=== PATIENT | female | born 1990 | race Caucasian/White ===

== ENCOUNTER 2016-08-31 23:59 | Emergency (ER) | payer OTHER | END 2016-09-01 04:00 | disposition left against medical advice (07) | LOC: CED 23:59 | DX: Z53.21 Procedure and treatment not carried out due to patient leaving prior to being seen by health care provider (principal) ==

== ENCOUNTER 2016-09-03 16:01 | Inpatient (IN) | payer OTHER ==
--- NOTE | ~2016-09-03 | MR64 ---
[facility] A Service of [facility] & [facility] RADIOLOGY TEXT RESULTS PATIENT: RAY GRUBER LOCATION: C2A 242-01 : [birth year] UNIT #: [id number] AGE: [address]: Sebastian Wilks MD SEX: F ORDER DR: [id number] [facility] [address] [facility]. [place], [place] [address] [id number] I MR#: [id number] Acc #: [id number] NAME: RAY GRUBER : 1990 SEX: F STUDY DATE/TIME: 09/04/2016 12:41 UNIT: [facility] ROOM: 242 STUDY DESCRIPTION: MR Forearm WWo Contrast Lt Attending Physician: Sebastian Wilks M.D. Ordering Physician: Sebastian Wilks M.D. Primary Care Physician: Danielito Montague M.D. MRI CENTER REPORT This report is preliminary unless electronic signature is present. EXAM MRI of the left arm with and without contrast HISTORY 26-year-old female dog bite 3 days ago, pain and swelling, left forearm. TECHNIQUE Multiplanar multiecho imaging was performed of the left forearm utilizing a high-field magnet and dedicated protocol. 2 gel capsules were placed over the area of bite wounds. FINDINGS Examination demonstrates soft tissue swelling and edema over the mid- to distal forearm flexor surface with enhancement of the tissues postcontrast, compatible with cellulitis. No drainable fluid collection or abscess identified. Similar confluent edema is also seen over the extensor surface of the distal forearm at the wrist joint. This also enhances and is compatible with cellulitis. No abscess identified. Visualized flexor and extensor tendons unremarkable, though there is some edema along the most superficial muscles of the flexor forearm. There may be a trace amount of intra fascial edema. Visualized neurovascular structures unremarkable. The osseous structures unremarkable. No evidence of septic arthritis of the elbow or wrist joint. Best seen on the sagittal T1 post contrast, there does appear to be a small puncture wound on the extensor side of the distal forearm and similarly, a small puncture wound along the flexor side of the forearm. IMPRESSION MRI findings compatible with cellulitis involving both the flexor and extensor sides of the forearm. This extends over at least 18 cm length of the forearm, most prominent distally at the site of the patient's puncture wounds. No drainable fluid collection or abscess. There is a small STS. [facility] A Service of [facility] RADIOLOGY TEXT RESULTS PATIENT: RAY GRUBER LOCATION: [facility] 242-01 : [birth year] UNIT #: [id number] AGE: [address]: Sebastian Wilks MD SEX: F ORDER DR: amount of edema along the muscle belly of the distal aspect of the flexor carpi radialis and a small amount of intrafascial edema and enhancement which could represent some deeper infection or reactive changes but clearly, no deep fluid collection or abscess seen. Underlying osseous structures appear normal. Dictated by... Melinda Pantoja M.D. THIS IS AN ELECTRONICALLY VERIFIED REPORT Melinda Pantoja M.D. at 09/04/2016 5:23 PM HO/jose g TD: 09/04/2016 15:57 JOB #: [id number] MRI CENTER REPORT Page 1 of 1 COPY
--- NOTE | ~2016-09-03 | DS ---
Unit #: [id number] #: [id number] Patient: RAY GRUBER [id number] [address] [place], [place] [address] [id number] I MR#: [id number] NAME: RAY GRUBER ROOM: 242 Age: 26 Sex: F Admission Date: 09/03/2016 : 1990 Discharge Date: 09/06/2016 Attending Physician: Sebastian Wilks M.D. Primary Care Physician: Danielito Montague M.D. DISCHARGE SUMMARY PRINCIPAL DISCHARGE DIAGNOSIS Left forearm cellulitis secondary to dog bite. PROCEDURES None. CONSULTANTS Dr. Cano from [facility]. REASON FOR HOSPITALIZATION The patient is a 26-year-old white female who is otherwise healthy. She was bit by her own dog on 08/31/2016. She was seen in the [facility] and placed on Augmentin. It became worse and she was referred to the emergency room. There she was afebrile with normal CBC and BMP. Plain films of the left forearm were within normal limits. She had an open wound anterior and posterior left forearm with purulent discharge. Decreased range of motion in the wrist. Insignificant amounts of swelling and erythema. She was admitted for IV therapy. HOSPITAL COURSE The patient was admitted. Blood cultures were sent. Wound cultures were sent. She was placed on IV clindamycin and Levaquin. MRI was performed. Surgery was consulted. MRI was consistent with cellulitis, but no abscess formation. Wound Gram stain showed no organisms seen. Cultures were negative. Blood cultures negative. The patient rapidly improving and being discharged home on oral antibiotics for followup in the office. DIET She is on a regular diet as tolerated. ACTIVITY She is to be off of work until 09/09/2016. FOLLOWUP She is to follow up with Dr. Montague in one week. DISCHARGE MEDICATIONS 1. Bactroban ointment applied to wounds b.i.d. 2. Levaquin 500 mg daily for 7 days. 3. Cleocin 300 mg q.i.d. for 7 days. 4. Florastor 250 mg b.i.d. 5. Resume home medications. a. Claritin 10 mg p.o. daily p.r.n. b. Multivitamins 1 p.o. daily. Unit #: [id number] #: [id number] Patient: RAY GRUBER Dictated by... Talib Diaz/marya TD: 09/07/2016 12:18 JOB #: [id number] DISCHARGE SUMMARY Page 1 of 1 X Sebastian Wilks MD X DISCHARGE SUMMARY
--- NOTE | ~2016-09-03 | CR132 ---
[facility] A Service of [facility] & [facility] RADIOLOGY TEXT RESULTS PATIENT: RAY GRUBER LOCATION: [facility] 242-01 : [birth year] UNIT #: [id number] AGE: [address]: Sebastian Wilks MD SEX: F ORDER DR: [id number] [facility] [address]. [place], [place] [address] [id number] I MR#: [id number] Acc #: [id number] NAME: RAY GRUBER : 1990 SEX: F STUDY DATE/TIME: 09/03/2016 16:50 UNIT: [facility] ROOM: [facility] STUDY DESCRIPTION: CR Forearm 2 View Lt Attending Physician: Steven Winter M.D. Ordering Physician: Ed Shorty Ventura M.D. Primary Care Physician: Danielito Montague M.D. MEDICAL IMAGING REPORT This report is preliminary unless electronic signature is present EXAM Left forearm, 2 views, 09/03/2016. HISTORY Left upper extremity pain and swelling after dog bite 3 days ago. FINDINGS AP and lateral views of the forearm show no evidence of fracture or destructive bone lesion. No periosteal elevation is seen. No radiodense foreign bodies are noted. Adjacent soft tissue structures are normal. IMPRESSION Normal forearm. Dictated by... Jorge Murphy M.D. THIS IS AN ELECTRONICALLY VERIFIED REPORT Jorge Murphy M.D. at 09/04/2016 2:11 PM JUAN PABLO/herb TD: 09/03/2016 19:14 JOB #: [id number] MEDICAL IMAGING REPORT Page 1 of 1 COPY
--- NOTE | ~2016-09-03 | BMI ---
[facility] Nutrition Therapy DATE: 09/04/16 Patient: RAY GRUBER Physician: LULÚ Address: [facility] ELISEO NORIEGA Room/Bed: [address] [place] [address], Zip: [place] [address] Admit Date: 09/03/16 Date of : [birth year] Height: 5 5 Weight: 243 110.22 HIGH BMI NOTE: DX: 26 Y.O. FEMALE ADMITTED FOR SEIZURE ANTHROPOMETRICS: 5'5", WT: 243# (110 KG), BMI: 40.4 DIET: REGULAR INTERVENTION: 1. REGULAR DIET RECOMMENDATIONS: 1. RECOMMEND TO CHANGE CURRENT DIET ORDER TO CC+HH TO PROMOTE GRADUAL WEIGHT LOSS TOWARDS HEALTHY BMI (19.0-25.0) OR +/-10%IBW RD WILL F/U PER PROTOCOL Respectfully, ROGE TELLEZ MS, RD, LD [facility] cc: client file
--- NOTE | ~2016-09-03 | HP ---
Unit #: [id number] #: [id number] Patient: RAY GRUBER [id number] [address] [place], [place] [address] [id number] I MR#: [id number] NAME: RAY GRUBER ROOM: 242 Age: 26 Sex: F Admission Date: 09/03/2016 : 1990 Attending Physician: Sebastian Wilks M.D. Primary Care Physician: Danielito Montague M.D. HISTORY AND PHYSICAL HISTORY OF PRESENT ILLNESS The patient is a 26-year-old white female who is otherwise in excellent health, who was bit by her own dog on 08/31/2016 as she was seen in the immediate care center and was given a prescription for Augmentin but despite this her arm became more swollen with increasing erythema, purulent discharge. She went back to the immediate care center and was referred to the emergency room. Here she was afebrile, had a normal white count. Plain films of the left forearm showed no foreign bodies or subcutaneous air and the patient is admitted for further evaluation and therapy. ALLERGIES The patient has no known medical allergies. She has a stated allergy to prednisone but is unsure what the reaction is. MEDICATIONS She was only on Claritin p.r.n. [id number], other than the Augmentin as mentioned above. SOCIAL HISTORY She is , has no children. Is a nonsmoker. Social alcohol user. No street drug use. Her only surgical history is that of jaw surgery for repair in the past. PHYSICAL EXAMINATION GENERAL: She is awake, alert and oriented x3 in no acute distress. VITAL SIGNS: Afebrile, pulse 89, respirations 16, blood pressure 121/76. Room air O2 sats 97%. HEENT: Unremarkable. NECK: Supple without JVD, bruits, adenopathy or thyromegaly. CHEST: Clear to auscultation. HEART: Has a regular rate and rhythm without any murmurs, rubs or gallops. ABDOMEN: Soft, nondistended, nontender with positive bowel sounds and no hepatosplenomegaly. EXTREMITIES: Showed no clubbing, cyanosis or edema. She has two open wounds anterior and posterior left forearm with purulent discharge. It is easily expressible. There was some surrounding erythema and edema. She was noted to have decreased range of motion at the wrist, suggestive that there maybe an abscess formation interfering with her tendons in her forearm. This is particularly worse with flexion versus extension at the wrist. IMPRESSION Unit #: [id number] #: [id number] Patient: ANDREEA GRUBERA Cellulitis left upper extremity secondary to dog bite. PLAN IV Cleocin, Levaquin. Surgical consult. MRI of the left forearm. DVT prophylaxis. Further evaluation pending results of the above. Dictated by Talib Diaz/rocky TD: 09/04/2016 08:22 JOB #: [id number] HISTORY AND PHYSICAL Page 1 of 1 X Sebastian Wilks MD X HISTORY AND PHYSICAL
[2016-09-03 16:22] LABS: BASOPHIL% 0.4 % (0-2.5); DIFF IND NO; EOSINOPHIL# 0.3 X10e3 (0-0.7); EOSINOPHIL% 3.4 % (0.0-7.0); HEMATOCRIT 40.8 % (35.0-45.0); HEMOGLOBIN 13.6 gm/dL (12.0-16.0); LYMPHOCYTE# 2.8 X10e3 (1.0-3.5); LYMPHOCYTE% 27.9 % (17.0-45.0); MEAN CORPUSCULAR HEMOGLOBIN 28.2 PG (28-34); MEAN CORPUSCULAR HGB CONC 33.2 g/dL (30-36); MEAN PLATELET VOLUME 9.4 FL (6.5-11.5); MONOCYTE# 0.8 X10e3 (0-1.0); MONOCYTE% 7.9 % (3.0-12.0); NEUTROPHIL% 60.4 % (40-75); PLATELET COUNT 157 X10e3 (140-420); RED CELL DISTRIBUTION WIDTH 14.2 % (11.0-15.5)
[2016-09-03 16:48] LABS: BUN/CREATININE RATIO 18.75; CALCIUM SERUM 8.5 mg/dL (8.4-10.2); CREATININE SERUM 0.8 mg/dL (0.6-1.4); GLOM FILT RATE Estimated 102.6 mL/min (>60); POTASSIUM 3.6 mmol/L (3.5-5.1)
[2016-09-03] MEDS ORDERED: CLARITIN10 M3 PO (17:15)
[2016-09-04] MEDS ORDERED: MULTI VITAMIN1 EACH PO (01:58)
[2016-09-06] MEDS ORDERED: LEVAQUIN PO (08:28)
[2016-09-06] MEDS ORDERED: ACETAMINOPHEN325 M1 PO (08:28)
[2016-09-06] MEDS ORDERED: BACTROBAN15 GM (08:28)
[2016-09-06] MEDS ORDERED: CLEOCIN HCL300 M1 PO (08:29)
[2016-09-06] MEDS ORDERED: FLORASTORKIDS250 MG PO (08:30)
== END 2016-09-06 08:45 | disposition home or self-care (01) | DRG 603 ==
LOC: CFTX 16:01 → CEDOF 17:20 → C2A 18:10
PROVIDERS: Nurse Practitioner
DX: L03.114 Cellulitis of left upper limb (principal)
CPT/HCPCS: 73090; 73220; 80048; 84703; 85025; 87040; 87070; 87205; 99285; A9577; J0295; J1650; J1956